=== PATIENT | male | born 1980 | race Hispanic/Latino ===

== ENCOUNTER 2022-05-22 08:32 | Emergency (ER) | payer OTHER, MEDICAID, SELFPAY ==
--- NOTE | ~2022-05-22 | XR_ITS ---
EXAMINATION: XR foot LT min 3V DATE: 05/22/2022 10:13 INDICATION: Left foot pain and swelling TECHNIQUE: Dorsoplantar, lateral, and 2 oblique views of the left foot were obtained. COMPARISON: None. FINDINGS: There is diffuse soft tissue swelling of ankle. Bone alignment is normal. No fracture is id entified. The joint spaces are unremarkable. IMPRESSION: 1. No acute osseous abnormality. Reviewed, dictated and finalized at location B. [employer]
--- NOTE | ~2022-05-22 | XR_ITS ---
EXAMINATION: XR ankle LT min 3V DATE: 05/22/2022 09:20 INDICATION: Left ankle pain TECHNIQUE: Anteroposterior, lateral, mortise, and additional oblique view of the ankle were obtained. COMPARISON: None. FINDINGS: There is diffuse soft tissue swelling of ankle. No fracture or osteochondral lesion are lawrence ntified. Bone alignment is normal. IMPRESSION: 1. Ankle soft tissue swelling without acute osseous abnormality. Reviewed, dictated and finalized at location B. S MELT OPERATOR
[2022-05-22 08:51] VITALS: BP 146/93; PULSE 92; RESP 16; TEMP 36.9; O2SAT 99
--- NOTE | 2022-05-22 09:39 | ED.LOWEXIN ---
HPI - Extremity Injury (Lower) General Chief Complaint: Extremity Injury, Lower Stated Complaint: foot injury Time Seen by Provider: 05/22/22 09:26 Source: patient Mode of arrival: ambulatory History of Present Illness HPI Narrative: 41-year-old male presents today with complaints of left ankle pain after he fell yesterday at about noon. Patient states he was walking down the stairs and at the bottom of the stairs of the whole which he walked into and then fell. He states he did twist his ankle unsure of how. Patient with significant pain and swelling since that incident. He has tried ibuprofen with little relief. Patient is able to bear weight but states pain 10 out of 10 at this point. Denies any injury to the ankle previously. Denies any medical history. Related Data Allergies Allergy/AdvReac Type Severity Reaction Status Date / Time No Known Allergies Allergy Verified 05/22/22 08:51 Review of Systems Review of Systems: CONSTITUTIONAL: Denies fever, chills, or sweats. CARDIOVASCULAR: Denies chest pain, palpitations, or edema. RESPIRATORY: Denies cough or dyspnea. GASTROINTESTINAL: Denies abdominal pain, nausea, vomiting, or diarrhea. GENITOURINARY: Denies dysuria or hematuria. SKIN: Denies rash or itching. MUSCULOSKELETAL: Left ankle pain and swelling. Denies numbness. Denies back pain or myalgia. Exam Narrative: GENERAL: Well-appearing, well-nourished, and in no acute distress. HEAD: Normocephalic, atraumatic. EYES: PERRLA and EOMI. NECK: Supple. No adenopathy or masses. No carotid bruits or JVD CHEST: Clear to auscultation. No respiratory distress. No wheezes rales or rhonchi HEART: Regular rate and rhythm. No murmur heard. Normal peripheral pulses. ABDOMEN: Soft, nontender, nondistended, normal active bowel sounds. EXTREMITIES: Left ankle significant swelling and tenderness. No tenderness to the tibia or fibula. Tenderness noted to the dorsal aspect of the left foot. Patient with CMS intact. Able to move toes. Limited range of motion to ankle due to pain. No edema. SKIN: Warm, dry, no rash. Course Vital Signs Vital signs: Vital Signs Temperature 36.9 C 05/22/22 08:51 Pulse Rate 92 05/22/22 08:51 Respiratory Rate 16 05/22/22 08:51 Blood Pressure 146/93 H 05/22/22 08:51 Pulse Oximetry 99 05/22/22 08:51 Temperature 36.9 C 05/22/22 08:51 Pulse Rate 87 05/22/22 11:56 Respiratory Rate 18 05/22/22 11:56 Blood Pressure 138/89 05/22/22 11:56 Pulse Oximetry 99 05/22/22 11:56 MDM - Extremity Injury (Lower) MDM Narrative Medical decision making narrative: 41-year-old male HPI as noted. Differentials as below. X-ray of left ankle and left foot obtained. No acute osseous abnormality seen on x-ray. Suspect sprain. Will Jalen wrap and give patient crutches patient is aware to be nonweightbearing and to follow-up with Ortho for further management. He is also aware that he can obtain an ankle brace from the store. Jalen wrap was applied here and crutch teaching completed. Differential Diagnosis Differential diagnosis: Likely ankle sprain and strain, ankle fracture and other (Fracture of foot.) Medical Records Attestation: I reviewed the patient's medical records. Imaging Data Attestation: I personally reviewed and interpreted this imaging study as follows: Radiologist's impression: Impressions Ankle X-Ray 05/22/22 09:22 IMPRESSION: 1. Ankle soft tissue swelling without acute osseous abnormality. Foot X-Ray 05/22/22 10:30 IMPRESSION: 1. No acute osseous abnormality. Discharge Plan Discharge Clinical Impression: Ankle sprain and strain Patient Disposition: Home, Self-Care Condition: Stable Instructions: Antibiotic Form, Ankle Sprain (DC) Additional Instructions: Please buy ankle brace for left ankle. Wear Jalen wrap until brace is gotten. Nonweightbearing to the left leg. Use crutches at all times. Follow-up with Ortho in 1
[2022-05-22] MEDS: ACETAMINOPHEN 500 MG TABLET 1000 MG PO (09:42)
[2022-05-22 11:56] VITALS: BP 138/89; PULSE 87; RESP 18; O2SAT 99
== END 2022-05-22 12:01 | disposition home or self-care (01) ==
PROVIDERS: Emergency Provider Nurse Practitioner Family
DX: S93.402A Sprain of unspecified ligament of left ankle, initial encounter (principal); S96.912A Strain of unspecified muscle and tendon at ankle and foot level, left foot, initial encounter; W17.2XXA Fall into hole, initial encounter
CPT/HCPCS: 73610; 73630; 99283; A9270

== ENCOUNTER 2024-05-11 14:48 | Emergency (ER) | payer SELFPAY ==
--- NOTE | ~2024-05-11 | XR_ITS ---
EXAMINATION: XR hand LT 2V DATE: 05/11/2024 15:40 INDICATION: Left hand fourth digit injury. TECHNIQUE: 2 views of left hand were obtained. COMPARISON: None. FINDINGS: There is a laceration of tip of fourth digit. There is an open fracture of tuft of fourth d istal phalanx with 2 mm displacement. 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 IMPRESSION: 1. Open fracture of tuft of fourth distal phalanx. Reviewed, dictated and finalized at location B.
[2024-05-11 14:54] VITALS: BP 154/93; PULSE 89; RESP 18; TEMP 36.7; O2SAT 95
--- NOTE | 2024-05-11 15:44 | ED.GENADULT ---
HPI - General Adult General Chief complaint: Wound/Laceration Stated complaint: finger injury Time Seen by Provider: 05/11/24 15:33 History of Present Illness HPI narrative: [age] old male presenting to the emergency department for evaluation for a crush injury to his left middle finger. Patient was caring a heavy door and his hand slipped and his finger was crushed between the door and a railing. Patient states his tetanus is not up-to-date. Related Data Allergies Allergy/AdvReac Type Severity Reaction Status Date / Time No Known Allergies Allergy Verified 05/11/24 14:50 Review of Systems Review of Systems: All systems reviewed & are unremarkable except as noted in HPI and below Exam Narrative: APPEARANCE: Well appearing, no pain, no distress, well-nourished. HEAD: normocephalic, atraumatic. EYES: PERRLA/EOMI, conjunctivae clear. NOSE: Normal no drainage EARS:TMS clear with good light reflex. THROAT: Pharynx clear, no exudate. NECK: Supple. No adenopathy, no masses. RESPIRATORY: Airway patent, respirations nonlabored. Clear to auscultation bilaterally, no rales, rhonchi, wheezing. CARDIOVASCULAR: Regular rate and rhythm without murmurs rubs or gallops. ABDOMINAL: Soft, nontender, nondistended, normal bowel sounds MUSCULOSKELETAL: Moves all extremities. Strength/ROM intact, No edema, No calf tenderness. NEURO: Alert. Cranial nerves II through XII intact. Good gait. Good coordination SKIN: Laceration of the left 4th finger. Course Vital Signs Vital signs: Vital Signs Temperature 98.1 F 05/11/24 14:54 Pulse Rate 89 05/11/24 14:54 Respiratory Rate 18 05/11/24 14:54 Blood Pressure 154/93 H 05/11/24 14:54 Pulse Oximetry 95 05/11/24 14:54 Temperature 98.1 F 05/11/24 14:54 Pulse Rate 90 05/11/24 18:23 Respiratory Rate 16 05/11/24 18:23 Blood Pressure 145/72 H 05/11/24 18:23 Pulse Oximetry 98 05/11/24 18:23 Procedures Laceration Laceration 1: Site: upper extremity Side (If applicable): left Size (cm): 3 Description: irregular Depth: simple, single layer Local Anesthetic: lidocaine 1% Amount of anesthesia used (mL): 5 Pre-repair: wound explored and irrigated ====== Skin Level ====== Skin layer closed with: prolene Size (cm): 4-0 Number of sutures: 6 Technique: simple, interrupted ====== Subcutaneous Layer ====== ====== Muscle Layer ====== ====== Tendon Layer ====== Medical Decision Making MDM Narrative Medical decision making narrative: Laceration was repaired as described in the procedure note. Patient was placed in a splint to isolate the fracture. Patient was started on antibiotics and patient's tetanus was updated. Patient was encouraged close follow-up with Hand surgery. All questions concerns were addressed patient was well-appearing at time of discharge. Laceration was repaired by ANABEL Anand. Differential Diagnosis Differential Diagnosis: Finger laceration, perineural involvement. Tuft fracture, finger contusion. Vital Signs Vital Signs: Vital Signs Temperature 98.1 F 05/11/24 14:54 Pulse Rate 89 05/11/24 14:54 Respiratory Rate 18 05/11/24 14:54 Blood Pressure 154/93 H 05/11/24 14:54 Pulse Oximetry 95 05/11/24 14:54 Temperature 98.1 F 05/11/24 14:54 Pulse Rate 90 05/11/24 18:23 Respiratory Rate 16 05/11/24 18:23 Blood Pressure 145/72 H 05/11/24 18:23 Pulse Oximetry 98 05/11/24 18:23 Discharge Plan Discharge Clinical Impression: Laceration, Open fracture of tuft of distal phalanx of finger Patient Disposition: Home, Self-Care Condition: Stable Instructions: Antibiotic Form Additional Instructions: Finger splint for the finger fracture. Antibiotic as directed until completed. Sutures need to be removed in 7-10 days. Have close follow-up with the plastic surgeon. Prescriptions: New cephalexin 500 mg capsule 500 mg PO Q8H 7 Days Qty: 21 0RF hydrocodone-acetaminophen 5-325 mg tablet 1 tablet PO Q12H PRN (Reason: pain) Qty: 14 0RF Follow-up/Referrals: Robert Alexis MD [Physician] - PHYSICIAN NOT ON STAFF,NONSTAFF [Primary Care Provider] -
[2024-05-11] MEDS: TETANUS,DIPHTHERIA,AC PERTUSSIS ADULT (0.5 ML) BOOSTRIX IM (16:03)
[2024-05-11] MEDS: CEPHALEXIN 500 MG CAPSULE PO (16:03)
[2024-05-11] MEDS: LIDOCAINE HCL 1% LOCAL INJ 10 ML VIAL INFILTRATE (16:03)
--- NOTE | 2024-05-11 17:45 | ED.WOUNDLAC ---
HPI - Wound/Laceration General Chief Complaint: Wound/Laceration Stated Complaint: finger injury Time Seen by Provider: 05/11/24 15:33 History of Present Illness HPI narrative: Related Data Allergies Allergy/AdvReac Type Severity Reaction Status Date / Time No Known Allergies Allergy Verified 05/11/24 14:50 Course Vital Signs Vital signs: Vital Signs Temperature 36.7 C 05/11/24 14:54 Pulse Rate 89 05/11/24 14:54 Respiratory Rate 18 05/11/24 14:54 Blood Pressure 154/93 H 05/11/24 14:54 Pulse Oximetry 95 05/11/24 14:54 Temperature 36.7 C 05/11/24 14:54 Pulse Rate 89 05/11/24 14:54 Respiratory Rate 18 05/11/24 14:54 Blood Pressure 154/93 H 05/11/24 14:54 Pulse Oximetry 95 05/11/24 14:54 Procedures Laceration Laceration 1: Date: 05/11/24 Time: 17:40 Site: hand Side (If applicable): left Size (cm): 1 Description: linear and flap Depth: simple, single layer Local Anesthetic: lidocaine 1% Amount of anesthesia used (mL): 5 Pre-repair: irrigated extensively ====== Skin Level ====== Skin layer closed with: nylon Size (cm): 4-0 Number of sutures: 6 Technique: simple, interrupted ====== Subcutaneous Layer ====== ====== Muscle Layer ====== ====== Tendon Layer ====== Discharge Plan Discharge Clinical Impression: Laceration, Open fracture of tuft of distal phalanx of finger Patient Disposition: Home, Self-Care Condition: Stable Instructions: Antibiotic Form Additional Instructions: Finger splint for the finger fracture Prescriptions: New cephalexin 500 mg capsule 500 mg PO Q8H 7 Days Qty: 21 0RF Follow-up/Referrals: PHYSICIAN NOT ON STAFF,NONSTAFF [Primary Care Provider] -
[2024-05-11 18:23] VITALS: BP 145/72; PULSE 90; RESP 16; O2SAT 98
== END 2024-05-11 18:30 | disposition home or self-care (01) ==
PROVIDERS: Emergency Provider Registered Nurse
DX: S62.633B Displaced fracture of distal phalanx of left middle finger, initial encounter for open fracture (principal); Z23 Encounter for immunization; W23.2XXA Caught, crushed, jammed or pinched between a moving and stationary object, initial encounter
CPT/HCPCS: 12001; 29130; 73120; 90471; 90715; 99284; A9270; J2003